=== PATIENT | male | born 1950 | race Caucasian/White ===

== ENCOUNTER → 2017-10-27 | Outpatient (CLI) | payer OTHER | LOC: COL.RAD 13:15 | DX: S43.492A Other sprain of left shoulder joint, initial encounter (principal); M94.8X1 Other specified disorders of cartilage, shoulder; M19.012 Primary osteoarthritis, left shoulder; S46.812A Strain of other muscles, fascia and tendons at shoulder and upper arm level, left arm, initial encounter; Z87.81 Personal history of (healed) traumatic fracture | CPT/HCPCS: A9585; Q9967 ==